=== PATIENT | male | born 1975 | race Caucasian/White ===

== ENCOUNTER 2022-08-17 18:02 | Emergency (ER) | payer OTHER, SELFPAY ==
--- NOTE | ~2022-08-17 | CT_ITS ---
EXAMINATION: CT abdomen pelvis wo con DATE: 08/17/2022 21:25 INDICATION: R flank pain x3 days, N/D TECHNIQUE: Computed tomography (CT) of the abdomen and pelvis was performed without intravenous contr ast. Automated exposure control and iterative reconstruction technique were employed. The dose-length product was 420.07 mGy-cm. COMPARISON: None. FINDINGS: Lower thorax: Bibasilar scar/atelectasis Liver: Normal. Biliary/Gallbladder: Gallbladder is normal. No bile duct dilation. Pancreas: No mass or duct dilation. Spleen: Normal. Adrenals:No mass. Kidneys: No mass, stone, or hydronephrosis. GI tract: No small or large bowel dilation. Surgically absent appendix. Mesentery/Peritoneum: No ascites, mass, or free air. Retroperitoneum: No mass. Mild atherosclerotic abdominal aortic and/or arterial calcifications. Pelvis: Pelvic organs are within normal limits. Soft Tissues: Soft tissues and body wall unremarkable. Bones: No acute osseous finding. IMPRESSION: No acute abdominopelvic process detected. Reviewed, dictated and finalized at location K.
[2022-08-17 18:03] VITALS: BP 143/60; PULSE 68; RESP 19; TEMP 36.8; O2SAT 99
[2022-08-17 21:01] LABS: Basophils Percent Auto 0.5 % (0.2-1.2); Eosinophils Absolute Auto 0.2 K/mm3 (0-0.3); Eosinophils Percent Auto 1.9 % (0-4.4); Hematocrit 40.9 % (42.0-52.0); Hemoglobin 13.3 g/dL (14.0-18.0); Immature Granulocyte Absolute 0.03 K/mm3 (0.00-0.031); Immature Granulocyte Percent A 0.3 % (0-0.5); Lymphocytes Absolute Auto 2.98 K/mm3 (0.9-3.2); Lymphocytes Percent Auto 34.6 % (18.3-44.2); Mean Corpuscular HGB Conc 32.5 g/dl (32-36); Mean Corpuscular Hemoglobin 28.4 pg (26-34); Mean Corpuscular Volume 87.2 fl (80-100); Mean Platelet Volume 8.2 fl (7.4-10.4); Monocytes Absolute Auto 0.8 K/mm3 (0.1-0.6); Monocytes Percent Auto 8.8 % (2.6-8.5); Neutrophils Absolute Auto 4.6 K/mm3 (1.3-6.7); Neutrophils Percent Auto 53.9 % (45.5-73.1); Platelet Count Result 228 k/mm3 (150-375); Red Blood Count 4.69 M/mm3 (4.6-6.20); Red Cell Distribution Width 15.2 % (11.5-14.5); White Blood Count 8.6 K/mm3 (4.5-10.0)
[2022-08-17] MEDS: SODIUM CHLORIDE 0.9% IV 1,000 ML 150 ML IV CONT (21:01)
[2022-08-17] MEDS: KETOROLAC 15 MG/ML VIAL (*BKC) IV PUSH (21:04)
[2022-08-17 21:11] LABS: Anion Gap 6 mmol/L (8-16); Appearance Urine Clear (Clear); Bilirubin Urine Negative (Negative); Blood Urea Nitrogen 16 mg/dL (9-20); Blood Urine Negative (Negative); Calcium 8.7 mg/dL (8.4-10.2); Carbon Dioxide 32 mmol/L (22-30); Chloride 101 mmol/L (98-107); Color Urine Yellow (Yellow); Estimated CRCL calculation 82 ml/min; Estimated Glomerular Filt Rate > 60; Glucose 103 mg/dL (65-110); Glucose Urine UA Negative (Negative); Ketones Urine Negative (Negative); Leukocyte Esterase Ur Negative LEU/UL (Negative); Nitrate Urine Negative (Negative); Potassium 4.1 mmol/L (3.4-5.0); Protein Urine Negative (Negative); Sodium 139 mmol/L (137-145); Specific Grav Ur 1.019 (1.001-1.035); Urobilinogen Urine 0.2 mg/dL (<2.0)
[2022-08-17 21:12] VITALS: BP 114/88; PULSE 61; RESP 16; O2SAT 100
--- NOTE | 2022-08-17 21:13 | PC.NURSE ---
Pt c/o right flank pain that radiates into his groin that started on Thursday. This morning pt woke up and pain was much more severe and he had uncontrollable nausea and vomiting. Pt states that despite drinking a large amount of water his urine is still very dark.
[2022-08-17 21:18] LABS: Add Urine Microscopic? NO
--- NOTE | 2022-08-17 21:34 | ED.BACK ---
HPI - Back Pain/Injury General Chief Complaint: Back Pain/Injury Stated Complaint: right flank pain Time Seen by Provider: 08/17/22 20:40 Source: patient Mode of arrival: ambulatory Limitations: no limitations History of Present Illness HPI Narrative: 46-year-old otherwise healthy here with complaints of right-sided flank pain for past 3 days. He also had nausea and diarrhea. He denies any fever or chills denies urinary symptoms. He denies lifting any heavy objects or fall. MD elicited complaint: back pain Onset (ago): day(s) (3) Timing: constant Severity: moderate Quality: aching Location: right flank Radiation: none Exacerbating factors: none Associated symptoms: denies other symptoms Related Data Home Medications Medication Instructions Recorded Confirmed apixaban 5 mg tablet (Eliquis) 5 mg PO BID 04/08/19 hydrocodone 10 mg-acetaminophen 1 tablet PO BID PRN Pain 04/08/19 325 mg tablet methadone 10 mg tablet 10 mg PO BID 04/08/19 Allergies Allergy/AdvReac Type Severity Reaction Status Date / Time No Known Allergies Allergy Unverified 04/08/19 15:28 Review of Systems Review of Systems: All systems reviewed & are unremarkable except as noted in HPI and below Constitutional: Constitutional: Reports no additional constitutional complaints Eyes: Eyes: Reports no additional eye complaints ENT: Reports system reviewed and no additional complaints, except as documented Cardiovascular: Cardiovascular: Reports no additional cardiovascular complaints Respiratory: Respiratory: Reports no additional respiratory complaints Gastrointestinal: Gastrointestinal: Reports no additional gastrointestinal complaints Genitourinary: Genitourinary: Reports no additional male genitourinary complaints Musculoskeletal: Musculoskeletal: Reports as per HPI Integumentary/Breasts: Skin/Breast: Reports system reviewed and no additional complaints, except as docu Neurologic: Reports system reviewed and no additional complaints, except as documented PMFSH Past Medical History Medical History History of Crohn's disease History of factor V Leiden mutation History of pulmonary embolism Surgical History Surgical History History of tonsillectomy Social History Social History Smoking status: Never smoker Gender identity (if verbalized by the patient): Male Exam Narrative: GENERAL: Well-appearing, well-nourished, and in no acute distress. HEAD: Normocephalic, atraumatic. EYES: PERRLA and EOMI. NECK: Supple. CHEST: Clear to auscultation. No respiratory distress. HEART: Regular rate and rhythm. No murmur heard. Normal peripheral pulses. ABDOMEN: Soft, nontender, nondistended, normal active bowel sounds tenderness in the right flank area ,no rash.. EXTREMITIES: Normal range of motion. No edema. SKIN: Warm, dry, no rash. NEURO: No focal deficits. Alert and oriented x3. PSYCH: Normal mood and affect. Course Course Emergency Course: With a history of right flank pain radiating down do a CT of the abdomen and pelvis to rule out kidney stone and lab work. His CT was unremarkable. There is no rebound Toradol 15 mg which is the pain. Discussed lab, CT findings with the patient. He feels comfortable going home patient Vital Signs Vital signs: Vital Signs Temperature 36.8 C 08/17/22 18:03 Pulse Rate 68 08/17/22 18:03 Respiratory Rate 19 08/17/22 18:03 Blood Pressure 143/60 H 08/17/22 18:03 Pulse Oximetry 99 08/17/22 18:03 Oxygen Delivery Room Air 08/17/22 18:03 Temperature 36.8 C 08/17/22 18:03 Pulse Rate 61 08/17/22 21:12 Respiratory Rate 16 08/17/22 21:12 Blood Pressure 114/88 08/17/22 21:12 Pulse Oximetry 100 08/17/22 21:12 Oxygen Delivery Room Air 08/17/22 18:03 MDM - Back Pain/Injury MDM Narrative
[2022-08-17 21:57] VITALS: BP 111/78; PULSE 61; RESP 16; O2SAT 98
== END 2022-08-17 21:58 | disposition home or self-care (01) ==
PROVIDERS: Emergency Provider Family Medicine
DX: M54.9 Dorsalgia, unspecified (principal); D68.51 Activated protein C resistance; K50.90 Crohn's disease, unspecified, without complications; Z86.711 Personal history of pulmonary embolism
CPT/HCPCS: 36415; 74176; 80048; 81003; 85025; 96361; 96374; 99284; J1885; J7030